=== PATIENT | male | born 1985 | race Caucasian/White ===

== ENCOUNTER 2016-10-06 00:11 | Emergency (ER) | payer OTHER ==
[2016-10-06 00:38] VITALS: BP 119/71; PULSE 106; TEMP 98; BMI 26.4
--- NOTE | 2016-10-06 02:42 | PDOC ---
History of Present Illness - General Chief Complaint: Edema Stated Complaint: PAIN/SWELLING/GROIN Time Seen by Provider: 10/06/16 00:52 History Source: Patient Exam Limitations: No Limitations - History of Present Illness Initial Comments: 10/06/16 02:45 31-year-old male with no medical history presents to the emergency department complaining of left testicular swelling with mild pain since last evening. Patient took ibuprofen with relief. Patient denies any nausea/vomiting, fever/ chills, chest pain, abdominal pains, urinary symptoms/urgency/frequency/ hematuria, hesitancy. Patient denies history of STD. Pt declines having STD test Timing/Duration: 24 hours Severity: mild Associated Symptoms: denies: nausea/vomiting Past History - Past Medical History Allergies/Adverse Reactions: Allergies Allergy/AdvReac Type Severity Reaction Status Date / Time Penicillins Allergy Severe Swelling Verified 10/06/16 00:37 Home Medications: Ambulatory Orders Levofloxacin [Levaquin] 500 mg PO DAILY #10 tablet 10/06/16 Other medical history: Denies - Immunization History Immunization Up to Date: Yes - Psycho/Social/Smoking Cessation Hx Anxiety: No Suicidal Ideation: No Smoking History: Current every day smoker Have you smoked in the past 12 months: No Number of Cigarettes Smoked Daily: 10 Information on smoking cessation initiated: No Hx Alcohol Use: Yes Drug/Substance Use Hx: No Substance Use Type: Alcohol Review of Systems - Review of Systems Able to Perform ROS?: Yes Comments:: 10/06/16 02:43 CONSTITUTIONAL: Absent: fever, chills, diaphoresis, generalized weakness, malaise, loss of appetite HEENT: Absent: rhinorrhea, nasal congestion, throat pain, throat swelling, difficulty swallowing, mouth swelling, ear pain, eye pain, visual Changes CARDIOVASCULAR: Absent: chest pain, loss of consciousness, palpitations, irregular heart rate, peripheral edema RESPIRATORY: Absent: cough, shortness of breath, dyspnea with exertion, orthopnea, wheezing, stridor, hemoptysis GASTROINTESTINAL: Absent: abdominal pain, abdominal distension, nausea, vomiting, diarrhea, constipation, melena, hematochezia GENITOURINARY: Left testicular swelling Absent: dysuria, frequency, urgency, hesitancy, hematuria, flank pain, genital pain MUSCULOSKELETAL: Absent: myalgia, arthralgia, joint swelling SKIN: Absent: rash, itching, pallor HEMATOLOGIC/IMMUNOLOGIC: Absent: easy bleeding, easy bruising, lymphadenopathy, frequent infections ENDOCRINE: Absent: unexplained weight gain, unexplained weight loss, heat intolerance, cold intolerance NEUROLOGIC: Absent: headache, focal weakness or paresthesias, dizziness, unsteady gait, seizure, mental status changes, bladder or bowel incontinence PSYCHIATRIC: Absent: anxiety, depression, suicidal or homicidal ideation, hallucinations. Is the patient limited Italian proficient: No *Physical Exam - Vital Signs Last Vital Signs Temp Pulse Resp BP Pulse Ox 98 F 106 H 20 119/71 99 10/06/16 00:35 10/06/16 00:35 10/06/16 00:35 10/06/16 00:35 10/06/16 00:35 - Physical Exam Comments: 10/06/16 02:43 GENERAL: Well developed, well nourished. Awake and alert. No acute distress. HEENT: Normocephalic, atraumatic. PERRLA, EOMI. No conjunctival pallor. Sclera are non- icteric. Moist mucous membranes. Oropharynx is clear. NECK: Supple. Full ROM. No JVD. Carotid pulses 2+ and symmetric, without bruits. No thyromegaly. No lymphadenopathy. CARDIOVASCULAR: Regular rate and rhythm. No murmurs, rubs, or gallops. Distal pulses are 2+ and symmetric. PULMONARY: No evidence of respiratory distress. Lungs clear to auscultation bilaterally. No wheezing, rales or rhonchi. ABDOMINAL: left testicular swelling/slight pain on palp; Neg phren sign Soft. Non-tender. Non-distended. No rebound or guarding. No organomegaly. Normoactive bowel sounds. MUSCULOSKELETAL Normal range of motion at all joints. No bony deformities or tenderness. No CVA tenderness. EXTREMITIES: No cyanosis. No clubbing. No edema. No calf tenderness. SKIN: Warm and dry. Normal capillary refill. No rashes. No jaundice. NEUROLOGICAL: Alert, awake, appropriate. Cranial nerves 2-12 intact. No deficits to light touch and temperature in face, upper extremities and lower extremities. No motor deficits in the in face, upper extremities and lower extremities. Normoreflexic in the upper and lower extremities. Normal speech. Toes are down- going bilaterally. Gait is normal without ataxia. PSYCHIATRIC: Cooperative. Good eye contact. Appropriate mood and affect. General Appearance: Yes: Appropriately Dressed ED Treatment Course - RADIOLOGY Radiology Studies Ordered: Category Date Time Status SCROTUM AND CONTENTS US [US] Stat Ultrasound 10/06/16 00:51 Taken *DC/Admit/Observation/Transfer Diagnosis at time of Disposition: Epididymitis, left - Discharge Dispostion Disposition: HOME Condition at time of disposition: Fair Admit: No - Prescriptions Prescriptions: Levofloxacin [Levaquin] 500 mg PO DAILY #10 tablet - Referrals Referrals: Camille Paige MD [Primary Care Provider] - Ruben Cheng MD., MD [Staff Physician] - - Patient Instructions Printed Discharge Instructions: DI for Epididymitis Additional Instructions: Reduce any physical activity Apply ice packs Motrin as needed for pain Sitz baths Must follow up with the urologist Your preliminary ultrasound report of the scrotum and contents shows the left testicle/epididymitis are mildly hypervascular. There is no evidence of testicular torsion. There is color flow demonstrated to both testicles. RX: levaquin 500mh take 1 tablet by mouth daily for 10 days
[2016-10-06] MEDS ORDERED: OXYCODONE/APAP 5/325MG COMBO TABLET PO ONE ×2 (03:19→03:25)
[2016-10-06] MEDS ORDERED: OXYCODONE/APAP 5/325MG COMBO TABLET ONE (03:20)
[2016-10-06] MEDS ORDERED: LEVOFLOXACIN 500 MG TABLET (FP) ONE (03:21)
[2016-10-06] MEDS ORDERED: LEVOFLOXACIN 750 MG TABLET PO SCH (10:00)
== END 2016-10-06 04:30 | disposition home or self-care (01) ==
LOC: JER 00:11
DX: N45.1 Epididymitis (principal)
CPT/HCPCS: 76870-TC; 99282-25